=== PATIENT | male | born 1990 | race Caucasian/White ===

== ENCOUNTER 2017-02-10 18:09 | Inpatient (IN) | payer OTHER ==
[~2017-02-10] VITALS: Ht 170.2 cm; Wt 127.9 kg
--- NOTE | ~2017-02-10 | DS ---
Unit #: [id number] #: [id number] Patient: ADELA HENSLEY [id number] [facility] [address] [place] [address] [id number] I MR#: [id number] NAME: ADELA HENSLEY ROOM: [facility] Age: 26 Sex: M Admission Date: 02/10/2017 : 1990 Discharge Date: 02/14/2017 Attending Physician: Jose Daniel Morales M.D. Primary Care Physician: Generic Doctor Not In System DISCHARGE SUMMARY REASON FOR ADMISSION The patient is a 26-year-old white male, admitted for alcohol detox. HOSPITAL COURSE The patient was admitted to the [facility] and placed on routine detoxification protocol for alcohol. His stay in the hospital was a brief and uneventful one. He did request Vistaril and Desyrel on a p.r.n. basis. By 02/14/2017, the patient was in bright spirits and exhibited no signs or symptoms of withdrawal. He requested discharge and it was so ordered. FINAL DIAGNOSES Alcohol use disorder and obesity. DISPOSITION ON DISCHARGE The patient is discharged on no psychotropic or other medications. FOLLOWUP Followup will take place through the auspices of community mental health resources in the [facility]. PROGNOSIS The patient's prognosis is considered fair. Dictated by... Jose Daniel Morales M.D. MONICA/kiah TD: 02/15/2017 02:46 JOB #: [id number] DISCHARGE SUMMARY Page 1 of 1 X Jose Daniel Morales MD X DISCHARGE SUMMARY
--- NOTE | ~2017-02-10 | HP ---
Unit #: [id number] #: [id number] Patient: ARNEL HENSLEY [id number] [place] [address] [id number] MR#: [id number] NAME: ARNEL HENSLEY ROOM: 71 Age: 26 Sex: M Admission Date: 02/10/2017 : 1990 Attending Physician: Jose Daniel Morales M.D. Admitting Physician: Jose Daniel Morales M.D. Primary Care Physician: Generic Doctor Not In System HISTORY AND PHYSICAL HISTORY OF PRESENT ILLNESS Arnel is a 26 year old admitted to [facility] because of his abuse of alcohol. PAST MEDICAL HISTORY 1. Long history of alcohol abuse. 2. High blood pressure. 3. Morbid obesity. PAST SURGICAL HISTORY Nothing reported. ALLERGIES No known drug allergies. SOCIAL HISTORY He smokes less than 1 pack per day. Drinks half gallon of vodka on a daily basis. Denies illicit drug use. FAMILY HISTORY Medically noncontributory. REVIEW OF SYSTEMS CONSTITUTIONAL: No fever or chills. HEENT: Denies any sore throat, ear pain or runny nose. CARDIOVASCULAR: Denies chest pain, irregular heart rhythm or palpitations. CHEST: Denies shortness of breath or cough. No hemoptysis. GASTROINTESTINAL: Denies nausea, vomiting, diarrhea or chronic constipation. ENDOCRINE: Denies history of increased thirst or urination. No recent significant weight loss or gain. GENITOURINARY: Denies dysuria, frequency, or hematuria. SKIN: Denies any rashes. HEMATOLOGIC: Denies history of increased bleeding or bruising. MUSCULOSKELETAL: Denies any hot, swollen joints. No generalized muscle pain. NEUROLOGIC: Denies problems with vision or speech. No frequent, severe headaches. No numbness, tingling or weakness in any extremities. Denies loss of bladder or bowel control. CURRENT MEDICATIONS Detox protocol. PHYSICAL EXAMINATION Unit #: [id number] #: [id number] Patient: ARNEL HENSLEY GENERAL: Alert, obese, in no apparent distress. VITAL SIGNS: Blood pressure 168/110, heart rate 80, respirations 16, temperature 98.6. WEIGHT: 282. HEIGHT: 5 feet 7 inches. SKIN: Warm and dry without rash or lesion. HEENT: Normocephalic. TMs not viewed. Oral and nasal passages clear. Conjunctivae clear. PERRLA. EOMs intact. NECK: Supple without lymphadenopathy or thyromegaly. HEART: Regular rate and rhythm without murmur. LUNGS: Clear. ABDOMEN: Soft, nontender. : Not done. EXTREMITIES: No evidence of cyanosis, clubbing or edema. Moves all without focal deficit. NEUROLOGICAL: Grossly within normal limits. Cranial Nerves: II: Visual hernandes are intact. III, IV AND : Extraocular movements are intact. Pupils are equal, round and reactive to light. V: Facial sensation is grossly normal. VII: Facial movements and expression are normal. VIII: Auditory acuity grossly intact. IX, X: Uvula is midline. Phonation is normal. XI: Patient shrugs shoulders and turns head normally. XII: Tongue protrudes in the midline. Sensory and Motor Function: Sensory and motor sensation is grossly normal. Motor: moves all extremities well. Coordination: Gait is normal. Deep Tendon Reflexes: Intact. IMPRESSION Psychiatric admission. RECOMMENDATIONS PSYCHIATRIC: Per psychiatrist. MEDICAL: See no contraindication to participate in facility's activities. MEDICAL PROGNOSIS Good. MEDICAL CONDITION Stable. Dictated by... Shakira Diop P.A.-C. for Rober Macias/ruperto TD: 02/11/2017 22:26 JOB #: [id number] Unit #: [id number] #: [id number] Patient: ARNEL HENSLEY HISTORY AND PHYSICAL Page 1 of 1 X Shakira Diop X HISTORY AND PHYSICAL
--- NOTE | ~2017-02-10 | PA ---
Unit #: [id number] #: [id number] Patient: ADELA HENSLEY [id number] [facility] [address] [place] [address] [id number] I MR#: [id number] NAME: ADELA HENSLEY ROOM: 71 Age: 26 Sex: M Admission Date: 02/10/2017 : 1990 Date of Assessment: 02/11/2017 Attending Physician: Jose Daniel Morales M.D. Admitting Physician: Jose Daniel Morales M.D. Primary Care Physician: Generic Doctor Not In System PSYCHIATRIC ASSESSMENT IDENTIFYING INFORMATION The patient is a 26-year-old white male admitted to the [address] [place] [address] for alcohol detox. INFORMANT(S) Patient. RELIABILITY Good. CHIEF COMPLAINT Need to detox. HISTORY OF PRESENT ILLNESS The patient is a 26-year-old white male from [place], [place]. He presented to [facility] reporting positive symptoms of intoxication and need to withdrawal. He states that he is drinking approximately 12 beers on a daily basis. He denies abuse of other psychoactive substances. He lives with his mother and father and is presently unemployed. He denies suicidal or homicidal ideation and denies any recent changes in sleep or appetite. Patient reports 1 previous chemical dependence treatment episode. 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 He completed his GED per his report. PAST PSYCHIATRIC HISTORY As above. FAMILY HISTORY Noncontributory. SOCIAL HISTORY As above, the patient is a father of an out of wedlock child. He has no history of alcohol related or other arrests. MEDICAL HISTORY The patient is obese and states that he suffers from hypertension. MEDICATION HISTORY None noted. ALLERGIES None reported. Unit #: [id number] #: [id number] Patient: ADELA HENSLEY MENTAL STATUS EXAM At this time, reveals the patient to be an obese, somewhat disheveled white male appearing stated age. He is in no apparent physical distress at the time of examination. He is awake, alert, oriented in all spheres. His mood is mildly dysphoric. His affect congruent. Speech is generally relevant and coherent. There are no gross deficits in memory or cognition noted. Intelligence is judged to be in the average range based on fund of knowledge. The patient is cooperative throughout the interview. He is currently denying suicidal or homicidal ideation and denies any psychotic symptoms. His judgement and insight appear to be intact. ASSETS AND LIABILITIES Patient's assets, motivation for change. Liabilities, lack of resources. ADMITTING DIAGNOSES 1. Alcohol use disorder. 2. Obesity. 3. Hypertension. PSYCHIATRIC PLAN/TREATMENT GOALS The patient remains hospitalized for safety and stabilization. Routine detoxification protocol for opioids will be initiated and if his blood pressures tending to run high, we will ask for medical consult. ESTIMATED LENGTH OF STAY Four days with followup to take place through the auspices of community mental health resources in the [facility]. Dictated by... Jose Daniel Morales M.D. MONICA/ruperto TD: 02/11/2017 15:31 JOB #: [id number] PSYCHIATRIC ASSESSMENT Page 1 of 1 X Jose Daniel Morales MD X PSYCHIATRIC ASSESSMENT
--- NOTE | ~2017-02-10 | PN ---
Unit #: [id number] #: [id number] Patient: ADELA HENSLEY [id number] [facility] [address] [place] [address] [id number] I MR#: [id number] NAME: ADELA HENSLEY ROOM: [facility] Age: 26 Sex: M Admission Date: 02/10/2017 : 1990 Attending Physician: Jose Daniel Morales M.D. Admitting Physician: Jose Daniel Morales M.D. Primary Care Physician: Generic Doctor Not In System [facility] PROGRESS NOTES DATE 02/12/2017 DISCUSSION The patient continues to complain of some mild symptoms of alcohol withdrawal but is in brighter spirits today. He requests "something for sleep and anxiety." I will add p.r.n. trazodone and Vistaril. We anticipate early week discharge with the patient stating he plans to return to his home in [facility]. Dictated by... Jose Daniel Morales M.D. CB/ruperto TD: 02/12/2017 14:02 JOB #: [id number] [facility] PROGRESS NOTES Page 1 of 1 X Jose Daniel Morales MD X PROGRESS NOTE
--- NOTE | ~2017-02-10 | PN ---
Unit #: [id number] #: [id number] Patient: ADELA HENSLEY [id number] [facility] [address] [place] [address] [id number] I MR#: [id number] NAME: ADELA HENSLEY ROOM: [facility] Age: 26 Sex: M Admission Date: 02/10/2017 : 1990 Attending Physician: Jose Daniel Morales M.D. Admitting Physician: Jose Daniel Morales M.D. Primary Care Physician: Generic Doctor Not In System [facility] PROGRESS NOTES DATE 02/13/2017 DISCUSSION The patient is today pushing for discharge from the hospital but continues to exhibit significant symptoms of opioid withdrawal continuing to require Ativan as recently as noon today. I recommend to the patient that he not consider discharge home until his detox is fully complete and the patient is agreeable. Dictated by... Jose Daniel Morales M.D. CB/armando TD: 02/13/2017 23:33 JOB #: [id number] [facility] PROGRESS NOTES Page 1 of 1 X Jose Daniel Morales MD X PROGRESS NOTE
== END 2017-02-14 16:05 | DRG 897 ==
LOC: P1E 23:40
PROC: HZ2ZZZZ Detoxification Services for Substance Abuse Treatment (ICD-10-PCS; principal; 2017-02-10)
DX: F10.10 Alcohol abuse, uncomplicated (principal); Z68.41 Body mass index [BMI] 40.0-44.9, adult; I10 Essential (primary) hypertension; E66.9 Obesity, unspecified; F17.200 Nicotine dependence, unspecified, uncomplicated
CPT/HCPCS: 86592